=== PATIENT | female | born 1965 | race Caucasian/White ===

== ENCOUNTER 2023-11-11 21:24 | Outpatient (CLI) | payer BC, SELFPAY ==
[2023-11-11 19:08] LABS: Basophils # 0.1 K/mm3 (0-0.2); Eosinophils # 0.1 K/mm3 (0.0-0.4); Eosinophils % 2.2 % (0.1-12.0); Hematocrit 42.8 % (37.0-47.0); Hemoglobin 14.4 g/dL (12.2-16.2); Lymphocytes # 1.6 K/mm3 (0.7-4.5); Lymphocytes % 23.6 % (10-50); Mean Corpuscular HGB Conc 33.6 g/dL (31.8-35.4); Mean Corpuscular Volume 89.3 fl (81-99); Mean Platelet Volume 8.1 fl (7.4-10.4); Monocytes # 0.3 K/mm3 (0.1-1.0); Monocytes % 4.8 % (1.7-9.3); Neutrophils # 4.6 K/mm3 (1.8-7.8); Neutrophils % 68.3 % (37.0-80.0); Platelet Count 331 K/mm3 (142-424); Red Blood Count 4.79 M/mm3 (4.20-5.40); Red Cell Distribution Width 13.4 % (11.5-17.5); White Blood Count 6.7 K/mm3 (4.8-10.8)
[2023-11-11 19:41] LABS: Alanine Aminotransferase 21 U/L (12-78); Albumin Level 4.1 g/dl (3.5-5.0); Albumin/Globulin Ratio 1.6 (1.1-1.8); Alkaline Phosphatase 79 U/L (38-126); Anion Gap 10.1 mEq/L (5-15); Aspartate Amino Transferase 26 U/L (14-36); Bilirubin,Total 0.5 mg/dl (0.2-1.3); Blood Urea Nitrogen 18 mg/dl (7-17); Calcium 9.4 mg/dl (8.4-10.2); Carbon Dioxide 31 mmol/L (22.0-30.0); Chloride 102 mmol/L (98-107); Estimated Glomerular Filt Rate 73 ml/min (>60); GFR (African American) 89 ML/MIN (>60); Globulin 2.6 g/dL (1.3-3.2); Glucose 150 mg/dl (74-100); Potassium 4.1 mmoL/L (3.5-5.1); Sodium 139 mmol/L (136-145); Total Protein,Serum 6.7 g/dl (6.3-8.2)
[2023-11-11 20:00] LABS: 25-OH Vitamin D, Total 46.3 ng/mL (30-100)
[2023-11-11 20:13] LABS: Thyroid Stimulating Hormone 1.62 uIU/mL (0.465-4.68)
[2023-11-11 23:54] LABS: Creatinine,Urine Random 73 mg/dL (Not Estab.)
[2023-11-11 23:56] LABS: Microalbumin < 6.000 mg/L (0-16.7)
== END 2023-11-11 23:59 ==
LOC: LAB.DROPOF 21:24
PROVIDERS: PCP Internal Medicine; Visit Provider Internal Medicine
DX: E11.9 Type 2 diabetes mellitus without complications (principal); F32.A Depression, unspecified; K21.9 Gastro-esophageal reflux disease without esophagitis; J45.909 Unspecified asthma, uncomplicated; Z79.899 Other long term (current) drug therapy
CPT/HCPCS: 80053; 82043; 82306; 82570; 83036; 84443; 85025

== ENCOUNTER 2024-12-30 16:25 | Outpatient (CLI) | payer BC, SELFPAY ==
[2024-12-30 18:57] LABS: Basophils # 0.1 K/mm3 (0-0.2); Basophils % 0.8 % (0.1-2.0); Eosinophils # 0.1 K/mm3 (0.0-0.4); Eosinophils % 2.3 % (0.1-12.0); Hematocrit 40.9 % (37.0-47.0); Hemoglobin 13.5 g/dL (12.2-16.2); Lymphocytes # 1.9 K/mm3 (0.7-4.5); Lymphocytes % 31.2 % (10-50); Mean Corpuscular Hemoglobin 29.7 pg (27.0-31.2); Mean Corpuscular Volume 89.9 fl (81-99); Mean Platelet Volume 9.5 fl (7.4-10.4); Monocytes # 0.5 K/mm3 (0.1-1.0); Monocytes % 7.8 % (1.7-9.3); Neutrophils # 3.6 K/mm3 (1.8-7.8); Neutrophils % 57.6 % (37.0-80.0); Platelet Count 346 K/mm3 (142-424); Red Blood Count 4.55 M/mm3 (4.20-5.40); Red Cell Distribution Width 13.3 % (11.5-17.5); White Blood Count 6.2 K/mm3 (4.8-10.8)
[2024-12-30 19:42] LABS: Hemoglobin A1C 6.4 % (4.0-6.0)
[2024-12-30 19:47] LABS: Chloride 104 mmol/L (98-107)
[2024-12-30 19:48] LABS: Albumin Level 4.3 g/dl (3.5-5.0); Potassium 4.1 mmoL/L (3.5-5.1); Sodium 140 mmol/L (136-145)
[2024-12-30 19:50] LABS: Alanine Aminotransferase 23 U/L (12-78); Anion Gap 11.1 mEq/L (5-15); Aspartate Amino Transferase 28 U/L (14-36); Blood Urea Nitrogen 15 mg/dl (7-17); Carbon Dioxide 29 mmol/L (22.0-30.0); Estimated Glomerular Filt Rate 73 ml/min (>60); GFR (African American) 89 ML/MIN (>60)
[2024-12-30 19:51] LABS: Albumin/Globulin Ratio 1.7 (1.1-1.8); Alkaline Phosphatase 93 U/L (38-126); Bilirubin,Total 0.7 mg/dl (0.2-1.3); Calcium 9.3 mg/dl (8.4-10.2); Globulin 2.5 g/dL (1.3-3.2); Glucose 74 mg/dl (74-100); Total Protein,Serum 6.8 g/dl (6.3-8.2)
[2024-12-30 20:53] LABS: 25-OH Vitamin D, Total 67.8 ng/mL (30-100)
== END 2024-12-30 23:59 | disposition home or self-care (01) ==
LOC: LAB.DROPOF 12-31 13:41
PROVIDERS: PCP Family Medicine; Visit Provider Family Medicine
DX: R53.83 Other fatigue (principal); E66.3 Overweight; Z13.1 Encounter for screening for diabetes mellitus
CPT/HCPCS: 80053; 82306; 83036; 84443; 85025

== ENCOUNTER 2025-04-20 11:09 | Outpatient (CLI) | payer BC, SELFPAY ==
--- OUTSIDE RECORDS SUMMARY | 2011-08-22 07:56 | XMS_ITS | Continuity of Care Document ---
Author Name [facility] Organization [facility] Care Team Providers Care Weaving Inspector Name Role Phone [facility] Unavailable Unavailable Problems Combined list of problems from Department of [facility] and [facility] facilities. It does not include entries that were removed or entered in error. Problem Status Onset Date Problem Type Date of Resolution Comments Source Anxiety disorder Active Condition [facility] Medications Combined list of outpatient medications from Department [facility] and [facility] facilities.Medications provided include 1) outpatient medications from the last 15 months, and 2) patient-reported medications. Medication Details Route Status Patient Instructions Prescription Expires Prescription Number Last Dispense Date Ordering Provider Order Date Order Qty Source BUSPIRONE HCL 5MG TAB TAKE ONE TABLET BY MOUTH TWICE A DAY ORAL ACTIVE MARSHALL HAYES 2010 [place] [facility] Immunizations Combined list of available immunizations from the Department of [facility] and [facility] facilities. Immunization Series Date Given Administered By Site Reaction Lot Number CVX Code Drug Jointer Operator Status Comments Source TD(ADULT) UNSPECIFIED FORMULATION [address] [place] [facility] Social History Combined list of available smoking, tobacco, and other social history from Department [facility] and [facility] facilities. Social History Type Response Date Comment Sourc e Tobacco smoking status NHIS V9 LIFETIME NON-USER OF TOBACCO 11/07/2010 [facility] History of tobacco use V9 TOBACCO OFFERED 11/07/2010 [facility]
--- NOTE | 2025-04-20 11:00 | MM_ITS ---
PROCEDURE INFORMATION: Exam: MG Bilateral Screening 3D Mammography Exam date and time: 04/20/2025 11:15 AM Age: 59 years old Clinical indication: Screening examination. TECHNIQUE: Imaging protocol: Bilateral Screening tomosynthesis and 2D mammography including computer-aided detection (CAD) when performed. COMPARISON: No relevant prior studies available. FINDINGS: MAMMOGRAPHY: Breast composition: There are scattered areas of fibroglandular density. Mass: None. Architectural distortion: None. Calcifications: No suspicious calcifications. Asymmetric density: None. Skin thickening: None. Axillary adenopathy: None. IMPRESSION: No mammographic evidence of malignancy. Annual screening is recommended unless otherwise clinically indicated. ASSESSMENT: BI-RADS Category 1: Negative.
--- OUTSIDE RECORDS SUMMARY | 2025-04-20 11:12 | XMS_ITS | Encounter Summary ---
Author Organization [employer] ([place], [place], [place], [place]) Address [address] [place] [address] Care Team Providers Care Account Services Coordinator Name Role Phone Unavailable Primary Care Provider Unavailabl e Encounter Details Date Type Department Care Team (Late st Contact Info) Description 10/10/2018 Transcribed Document [facility] [place] [address] ProviderGraham MD [address] [id number] Social History Tobacco Use Types Packs/Day Years Used Date Smoking Tobacco: Never Assessed Comments Unknown Sex and Gender Information Value Date Recorded Sex Assigned at Not on file Legal Sex Female 6:21 PM CDT Gender Identity Not on file Sexual Orientation Not on file documented as of this encounter Miscellaneous Notes * Cerner Conversion Note - Graham Hughes MD - 10/10/2018 10:40 AM [employer] PATTERNMAK[employer] METAL DATE OF ADMISSION: 10/08/2018 DATE OF DISCHARGE: 10/09/2018 DISCHARGE DIAGNOSES: Symptomatic complete uterovaginal prolapse with cystocele, rectocele, and genuine urinary stress incontinence. IDENTIFICATION: Patient is a pleasant 52-year-old with the above-mentioned history and diagnoses, underwent a robotic-assisted total laparoscopic hysterectomy and bilateral salpingectomy with abdominal sacrocolpopexy and TVT on 10/08. She was discharged on the first postoperative day. She was ambulating, tolerating regular diet, really doing well. Her voiding trials went well. She was discharged because of the in and out cath that occurred on Cipro prophylaxis for a few days as well as the Nixon 7.5 for pain, but she was passing flatus, ambulating, tolerating regular diet. She verbalizes understanding about our postop instructions and followup. She will follow up in the office in one week or sooner if need be. She verbalized understanding about the fever of 101 or more, bleeding, other issues, vomiting, etc., she will call us p.r.n., but she did very well, more thankful that she did well. Justin Joseph M.D. Dict: 10/10/2018 10:40:28 Trans: 10/11/2018 02:52:17 CC1: Justin Joseph M.D. Electronically signed by Viktoria [facility] Conversion Obstetrical Anesthesiologist Cerner at 01/31/2023 4:05 PM CDT documented in this encounter Plan of Treatment Not on file documented as of this encounter Visit Diagnoses Not on filedocumented in this encounter
--- OUTSIDE RECORDS SUMMARY | 2025-04-20 11:13 | XMS_ITS | Clinical Summary ---
Author Organization Healthcare Address [address] [place] [address] Care Team Providers Care Cabin Furnishings Installer Name Role Phone Saundra Hudson APRN Primary Care Provider [phone] Allergies No known active allergies Medications escitalopram (Lexapro) 10 MG tabletIndicatio ns:Major depressive disorder, recurrent, moderate (CMS/HCC) TAKE 1 TABLET AT BEDTIME 30 tablet 1 10/23/2023 Active Active Problems Problem Noted Date Diagnosed Date Type 2 diabetes mellitus wit hout complication, without long-term current use of insulin 01/14/2023 Anxiety state 11/16/2022 Family History Medical History Relation Name Comments Diabetes Father Hypertension, benign Father Diabetes Mother Diabetes Sister Relation Name Status Comments Father Mother Sister Social History Tobacco Use Types Packs/Day Years Used Date Smoking Tobacco: Never Smokeless Tobacco: Never Tobacco Cessation:Counseling Given: Not Answered Alcohol Use Standard Drinks/Week Comments Not Currently 0 (1 standard drink = 0.6 oz pur e alcohol) Humiliation, Afraid, Rape, and Kick questionnair e Answer Date Recorded Within the last year, have y ou been afraid of your partner or ex-partner? No 09/24/2022 Within the last year, have y ou been humiliated or emotionally abused in other ways by your partner or ex-partner? No Within the last year, have y ou been kicked, hit, slapped, or otherwise physically hurt by your partner or ex-partner? No 09/24/2022 Within the last year, have y ou been raped or forced to have any kind of sexual activity by your partner or ex-partner? No 09/24/2022 Social Connection and Isolation Panel Answer Date Recorded In a typical week, how many times do you talk on the phone with family, friends, or neighbors? More than three times a week 09/24/2022 How often do you get togethe r with friends or relatives? Never 09/24/2022 How often do you attend chur ch or gnosticism services? Never 09/24/2022 Do you belong to any clubs o r organizations such as denominational groups, unions, fraternal or athletic groups, or school groups? No 09/24/2022 How often do you attend meet ings of the clubs or organizations you belong to? Never 09/24/2022 Are you , , di vorced, , never , or living with a partner? 09/24/2022 AUDIT-C Answer Date Recorded Q1: How often do you have a drink containing alcohol? Never 09/24/2022 Q2: How many drinks containi ng alcohol do you have on a typical day when you are drinking? Patient does not drink Q3: How often do you have si x or more drinks on one occasion? Never 09/24/2022 Overall Financial Resource Strain (CARDIA) Answe r Date Recorded How hard is it for you to pa y for the very basics like food, housing, medical care, and heating? Not hard at all 09/24/2022 PHQ-2 Answer Date Recorded Patient Health Questionnaire-2 Score 0 11/16/2022 [facility] - Occupational Stress Questionnaire Answer Date Recorded Do you feel stress - tense, restless, nervous, or anxious, or unable to sleep at night because your mind is troubled all the time - these days? Only a little 09/24/2022 Exercise Vital Sign Answer Date Recorde d On average, how many days pe r week do you engage in moderate to strenuous exercise (like a brisk walk)? 5 days 09/24/2022 On average, how many minutes do you engage in exercise at this level? 20 min 09/24/2022 Hunger Vital Sign Answer Date Recorded Within the past 12 months, y ou worried that your food would run out before you got the money to buy more. Never true 09/24/20 22 Within the past 12 months, t he food you bought just didn't last and you didn't have money to get more. Never true 09/24/2022 PRAPARE - Transportation Answer Date Re corded In the past 12 months, has l ack of transportation kept you from medical appointments or from getting medications? No 09/13 In the past 12 months, has l ack of transportation kept you from meetings, work, or from getting things needed for daily living? No 09/24/2022 Housing Stability Vital Sign Answer Gio e Recorded In the last 12 months, was t here a time when you were not able to pay the mortgage or rent on time? No 09/24/2022 Number of Places Lived in the Last Year Not on f ile 09/24/2022 In the last 12 months, was t here a time when you did not have a steady place to sleep or slept in a detention (including now)? No 09/24/2022 PHQ-9 Answer Date Recorded Patient Health Questionnaire-9 Score 16 09/24/2022 PHQ-2A Answer Date Recorded Patient Health Questionnaire-2 Score 0 11/16/2022 Comments Unknown Sex and Gender Information Value Date Recorded Sex Assigned at Not on file Legal Sex Female 6:29 PM EDT Gender Identity Not on file Sexual Orientation Not on file Last Filed Vital Signs Vital Sign Reading Time Taken Comments Blood Pressure 114/72 01/14/2023 3:06 PM EDT Pulse 84 01/14/2023 3:06 PM EDT Temperature 36.4 C (97.5 F) 11/16/2022 3:33 PM EST Respiratory Rate 18 11/16/2022 3:33 PM EST Oxygen Saturation 96% 01/14/2023 3:06 PM EDT Inhaled Oxygen Concentration - - Weight 72.6 kg (160 lb) 01/14/2023 3:06 PM EDT Height 162.6 cm (5' 4 ) 01/14/2023 3:06 PM EDT Body Mass Index 27.46 01/14/2023 3:06 PM EDT Plan of Treatment Health Maintenance Due Date Last Done Comments [facility]-HIV Screening 1964 [facility]-Hepatitis C Screening 1964 [facility]-Infant/Child/Adol SDOH Screenings 1964 Diabetes: Dental Exam 1974 [facility]- SDOH Screenings 1982 [facility]-Adult SDOH Screenings 1982 [facility]-Pneumococcal Vaccine: 50+ Years (1 of 2 - PCV) 1983 CT Colonography 2009 Colonoscopy 2009 FIT-DNA 2009 FIT 2009 FOBT 2009 Sigmoidoscopy 2009 [facility]-Colorectal Cancer Screening 2009 [facility]-Breast Cancer Screening 2014 [facility]-Zoster Vaccines (1 of 2) 2014 [facility]-Diabetes: Hemoglobin A1C 07/14/2023 01/14/2023, 09/24/2022 [facility]-Depression Screening 11/16/2023 11/16/2022, 09/13 [id number] Vaccine ( season) 2024 09/22/2021, 01/30/2021, 01/02/2021 [facility]-Influenza Vaccine (#1) 06/14/202510/12, 07/23/2020, 07/15/2019, Additional history exists [facility]-DTaP,Tdap,and Td Vaccines (2 - Td or Tdap) 04/28/2028 04/28/2018, 08/14/2010 [facility]-RSV Vaccine: 60+ Years or (1 - 1-dose 75+ series) 2039 [facility]-Obesity Intervention Completed 023, 11/16/2022, 11/16/2022, Additional history exists HPV Vaccines Aged Out No longer eligi ble based on patient's age to complete this topic [facility]-HIB Vaccines Aged Out No longer e ligible based on patient's age to complete this topic [facility]-Hepatitis A Vaccines Aged Out No longer eligible based on patient's age to complete this topic [facility]-IPV Vaccines Aged Out No longer e ligible based on patient's age to complete this topic [facility]-Rotavirus Vaccines Aged Out No lo nger eligible based on patient's age to complete this topic Procedures Procedure Name Priority Date/Time Associated Diagnosis Comments POCT GLYCOSYLATED HEMOGLOBIN (HGB A1C) Routine 01/14/2023 3:21 PM EDT Type 2 diabetes mellitus without complication, without long-term current use of insulin ([facility]) from Last 3 Months or Most Recently Relevant to Health Maintenance Results * POCT glycosylated hemoglobin (Hb A1C) docked device (01/14/2023 3:21 PM EDT) POCT Hemoglobin A1C 6.2 4.4-6.6 % % [facility] Kit Lot Number [id number] [facility] Kit Expiration Date 12/11/2024 [facility] Blood Venous blood specimen / Unknown 01/14/2023 3:21 PM EDT Aleksandra Pham TRIM LINE WORKER POINT OF CARE TEST ENTER/EDIT ORDERABLES Final Result Performing Organization Address City/State/[facility] Co de Phone Number [facility] [address] [place] [address] from Last 3 Months or Most Recently Relevant to Health Maintenance Insurance [employer] Care Teams Cabin Furnishings Installer Relationship Specialty Start Date End Date Saundra Hudson APRN [address] [place] [address] PCP - General Family Medicine 09/24/22
--- OUTSIDE RECORDS SUMMARY | 2025-04-20 11:13 | XMS_ITS | Clinical Summary ---
Author Organization [employer] ([place], [place], [place], [place]) Address [address] [place] [address] Care Team Providers Care Telephone Operator Chief Name Role Phone Unavailable Primary Care Provider Unavailabl e Social History Tobacco Use Types Packs/Day Years Used Date Smoking Tobacco: Never Assessed Comments Unknown Sex and Gender Information Value Date Recorded Sex Assigned at Not on file Legal Sex Female 6:21 PM CDT Gender Identity Not on file Sexual Orientation Not on file Plan of Treatment Not on file
--- OUTSIDE RECORDS SUMMARY | 2025-04-20 11:13 | XMS_ITS | Referral Summary ---
Author Organization [employer] ([place], [place], [place], [place]) Address [address] [place] [address] Care Team Providers Care Incising Machine Operator Name Role Phone Unavailable Primary Care Provider [...]
== END 2025-04-20 23:59 | disposition home or self-care (01) ==
LOC: RAD 11:10
PROVIDERS: PCP Family Medicine; Visit Provider Family Medicine
DX: Z12.31 Encounter for screening mammogram for malignant neoplasm of breast (principal); R92.323 Mammographic fibroglandular density, bilateral breasts
CPT/HCPCS: 77063; 77067